=== PATIENT | female | born 1995 | race African-American/Black ===

== ENCOUNTER 2018-06-29 22:34 | Emergency (ER) | payer SELFPAY ==
[~2018-06-29] VITALS: Ht 167.6 cm; Wt 113.4 kg
[~2018-06-29 22:34] MED LIST: IBUPROFEN600 MG ORAL; KEFLEX500 MG ORAL; KENALOG 0.025%15 GM APPLIC; NKM
[2018-06-29] MEDS ORDERED: NKM (22:46)
[2018-06-29 22:48] VITALS: BP 121/67
[2018-06-29 23:05] VITALS: BP 121/67
[2018-06-29] MEDS ORDERED: BENADRYL25 MG ORAL (23:08)
--- NOTE | 2018-06-29 23:08 | Emergency Room Report ---
History of Present Illness General Chief Complaint: Skin Rash/Abscess Source: Patient Present Illness HPI Is a 23-year-old female with no significant past medical history. She presents with allergic reaction. Patient had a sandwich and some juice and developed itching all of her body. Also said her ears were swollen and face was swollen. This occurred just prior to arrival. Now it resolved without any intervention. Denies any other complaint. Never had this problem before. Allergies: Coded Allergies: No Known Allergies (Unverified , 02/13/16) Patient History Past Medical History: see triage record, old chart reviewed Past Surgical History: none Pertinent Family History: none Social History: Denies: smoking Last Menstrual Period: still on Now: No Immunizations: other Reviewed Nursing Documentation: PMH: Agreed; PSxH: Agreed Nursing Documentation-PMH Past Medical History: No Stated History Hx Asthma: Yes Review of Systems Eye: Denies: eye pain, blurred vision ENT: Denies: ear pain, nose congestion, throat swelling Respiratory: Denies: cough, shortness of breath Cardiovascular: Denies: chest pain, palpitations Gastrointestinal: Denies: abdominal pain, diarrhea, nausea, vomiting Musculoskeletal: Denies: back pain, joint pain Skin: Reports: other - Itching; Denies: rash Neurological: Denies: headache, numbness Endocrine: Denies: increased thirst, increased urine Hematologic/Lymphatic: Denies: easy bruising All Other Systems: negative except mentioned in HPI Physical Exam Vital Signs Date Time Temp Pulse Resp B/P (MAP) Pulse Ox O2 Delivery O2 Flow Rate FiO2 06/29/18 22:41 98.2 100 16 111/42 96 Room Air vitals normal Sp02 EP Interpretation: reviewed, normal General Appearance: well appearing, no apparent distress, alert, obese Head: normocephalic, atraumatic Eyes: bilateral eye PERRL, bilateral eye EOMI ENT: hearing grossly normal, normal pharynx Neck: full range of motion, supple, no meningismus Respiratory: chest non-tender, lungs clear, normal breath sounds Cardiovascular #1: regular rate, rhythm, no murmur Gastrointestinal: normal bowel sounds, non tender, no mass, no organomegaly, no bruit, non-distended Musculoskeletal: back normal, gait/station normal, normal range of motion Psychiatric: mood/affect normal Skin: warm/dry Medical Decision Making Diagnostic Impression: Primary Impression: Allergic reaction Qualified Codes: T78.40XA - Allergy, unspecified, initial encounter ER Course Patient with symptoms consistent with for allergy. Unknown what particular food. No evidence of anaphylaxis but no evidence of any severe reaction. We will discharge home. Last Vital Signs Date Time Temp Pulse Resp B/P (MAP) Pulse Ox O2 Delivery O2 Flow Rate FiO2 06/29/18 22:41 98.2 100 16 111/42 96 Room Air Status: improved Disposition: HOME, SELF-CARE Condition: Stable Scripts Diphenhydramine Hcl* (BENADRYL*) 25 Mg Capsule 50 MG ORAL Q6H PRN for Itching, #30 CAP Prov: Jin Mena MD 06/29/18 Additional Instructions: Follow-up with your Dr. 7 days. Return if worse. Jin Mena MD Jun 29, 2018 23:08
== END 2018-06-29 23:29 | disposition home or self-care (01) ==
LOC: EMR 23:11
DX: T78.40XA Allergy, unspecified, initial encounter (principal); X58.XXXA Exposure to other specified factors, initial encounter
CPT/HCPCS: 99282